=== PATIENT | male | born 1995 | race Caucasian/White ===

== ENCOUNTER 2017-01-06 16:09 | Emergency (ER) | payer SELFPAY ==
[2017-01-06 17:52] LABS: CREATININE 0.8 mg/dL (0.7-1.2)
== END 2017-01-06 18:30 | disposition home or self-care (01) ==
LOC: FER 16:09
PROVIDERS: Internal Medicine
DX: S82.001A Unspecified fracture of right patella, initial encounter for closed fracture (principal); E10.9 Type 1 diabetes mellitus without complications; V49.40XA Driver injured in collision with unspecified motor vehicles in traffic accident, initial encounter; Y92.410 Unspecified street and highway as the place of occurrence of the external cause
CPT/HCPCS: 36415; 36600; 73564; 80048; 82009; 82803

== ENCOUNTER 2017-01-09 13:31 | Day surgery (SDCO) | payer OTHER ==
[2017-01-09 14:34] LABS: HCT 40.9 % (42.0-52.0); MCHC 34.2 g/dL (32.0-36.0); MCV 87.6 fL (78.0-100.0); MPV 11.3 fL (6.0-9.5); RBC 4.67 M/uL (4.70-6.00); RDW 12.5 % (11.5-14.0); WBC 5.1 K/uL (4.0-10.5)
[2017-01-09 15:13] LABS: INR 0.93 (0.9-1.2); PROTHROMBIN TIME 12.1 SECONDS (11.7-14.0)
[2017-01-09 15:18] LABS: ALBUMIN 3.7 g/dL (3.5-5.0); BILIRUBIN - TOTAL 0.2 mg/dL (0.1-1.0); CREATININE 0.7 mg/dL (0.7-1.2); GLOBULIN (CALCULATION) 2.2 g/dL (2.2-4.2); POTASSIUM 3.7 mmol/L (3.5-5.1); TOTAL PROTEIN 5.9 g/dL (6.4-8.3)
[2017-01-10] MEDS ORDERED: LANTUS100 UNIT/1 SQ (13:21)
[2017-01-10] MEDS ORDERED: NOVOLOG VI100 UNIT/1 SQ (13:21)
[2017-01-10] MEDS ORDERED: NORCO 5-325 TA1 EACH PO (13:22)
[2017-01-10] MEDS ORDERED: PERCOCET 5/3251 TAB PO (13:23)
[2017-01-10] MEDS ORDERED: ZOFRAN4 MG PO (13:23)
== END 2017-01-10 14:38 | disposition home or self-care (01) ==
LOC: FAS 13:31 → FMS 18:35
PROVIDERS: ADMIT Legal Medicine
DX: S82.001A Unspecified fracture of right patella, initial encounter for closed fracture (principal); M25.061 Hemarthrosis, right knee; S76.191A Other specified injury of right quadriceps muscle, fascia and tendon, initial encounter; E11.9 Type 2 diabetes mellitus without complications; Z82.49 Family history of ischemic heart disease and other diseases of the circulatory system; Z79.4 Long term (current) use of insulin; Z79.899 Other long term (current) drug therapy
CPT/HCPCS: 36415; 71010; 73560; 76000; 80053; 82962; 85610; 93005; 94760; 97116; 97161; 97530-GP; C1713; G0378; J0690; J1170; J1815; J2405; J2704; J2795; J3010